=== PATIENT | female | born 1960 | race Caucasian/White ===

== ENCOUNTER 2016-05-14 09:29 | Emergency (ER) | payer OTHER ==
[2016-05-14 09:43] VITALS: BP 126/74; PULSE 70; TEMP 97.7; BMI 24.1
[2016-05-14 11:01] LABS: URINE APPEARANCE CLEAR; URINE BILIRUBIN NEGATIVE (NEGATIVE); URINE BLOOD NEGATIVE (NEGATIVE); URINE COLOR LTYELLOW; URINE GLUCOSE (UA) NEGATIVE (NEGATIVE); URINE KETONE NEGATIVE (NEGATIVE); URINE LEUK ESTERASE NEGATIVE (NEGATIVE); URINE NITRITE NEGATIVE (NEGATIVE); URINE PROTEIN NEGATIVE (NEGATIVE); URINE UROBILINOGEN NEGATIVE E.U./dl (0.2-1.0)
[2016-05-14] MEDS ORDERED: KETOROLAC TROMETHAMINE 60 MG/2 ML VIAL IM ONE (11:17)
--- NOTE | 2016-05-14 11:26 | PDOC ---
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 Pt states she lifted heavy vaccum and felt pain to low back. Pt has had same symptoms in the past. No urine or bowel dysfunction, no leg numbness or saddle anesthesia. Pt denies vomiting, pain is worse with sitting down, walking. no fever or chills. Occurred: reports: other (4 days) Severity: reports: moderate Pain Location: reports: back Method of Injury: No: assault, direct blow, fall, motor vehicle crash Past History - Past Medical History Allergies/Adverse Reactions: Allergies Allergy/AdvReac Type Severity Reaction Status Date / Time No Known Allergies Allergy Verified 05/14/16 09:44 Home Medications: Ambulatory Orders Cyclobenzaprine HCl [Flexeril -] 10 mg PO TID PRN #21 tablet 05/14/16 Naproxen [Naprosyn -] 500 mg PO BID PRN #21 tablet 05/14/16 Anemia: No Asthma: No Cancer: No Cardiac Disorders: No CVA: No COPD: No CHF: No Dementia: No Diabetes: No GI Disorders: Yes (HX GERD) Disorders: No HTN: No Hypercholesterolemia: Yes Liver Disease: No Seizures: No Thyroid Disease: No Other medical history: back pain - Surgical History Abdominal Surgery: No Appendectomy: No Cardiac Surgery: No Cholecystectomy: Yes Lung Surgery: No Neurologic Surgery: No Orthopedic Surgery: No - Psycho/Social/Smoking Cessation Hx Anxiety: No Suicidal Ideation: No Smoking Status: Yes Smoking History: Current every day smoker Have you smoked in the past 12 months: Yes Number of Cigarettes Smoked Daily: 2 Information on smoking cessation initiated: No 'Breaking Loose' booklet given: 07/06/14 Hx Alcohol Use: No Drug/Substance Use Hx: No Substance Use Type: None Hx Substance Use Treatment: No Trauma Specific PMHX - Complaint Specific PMHX Arthritis: No Back Injury: No Neck Injury: No Hx Sacro Iliac Joint Dysfunction: No Review of Systems - Review of Systems Able to Perform ROS?: Yes Is the patient limited Indonesian proficient: No Constitutional: No: Symptoms Reported HEENTM: No: Symptoms Reported Respiratory: No: Symptoms reported Cardiac (ROS): No: Symptoms Reported ABD/GI: No: Symptoms Reported : No: Symptoms Reported Musculoskeletal: Yes: See HPI, Back Pain. No: Neck Pain Integumentary: No: Symptoms Reported Neurological: No: Symptoms reported *Physical Exam - Vital Signs Last Vital Signs Temp Pulse Resp BP Pulse Ox 97.7 F 70 18 126/74 100 05/14/16 09:40 05/14/16 09:40 05/14/16 09:40 05/14/16 09:40 05/14/16 09:40 - Physical Exam General Appearance: Yes: Nourished, Appropriately Dressed HEENT: positive: EOMI, PONCHO, Normal ENT Inspection, TMs Normal, Pharynx Normal Neck: positive: Supple Respiratory/Chest: positive: Lungs Clear, Normal Breath Sounds Cardiovascular: positive: Regular Rhythm, Regular Rate Gastrointestinal/Abdominal: positive: Normal Bowel Sounds, Soft Rectal Exam: positive: normal exam, normal rectal tone. negative: decreased tone Lymphatic: negative: Adenopathy Musculoskeletal: positive: Normal Inspection, Decreased Range of Motion, Other ( right lower back paraspinal lumbar tenderness ). negative: CVA Tenderness, CVA Tenderness (R), CVA Tenderness (L), Muscle Spasm, Vertebral Tenderness Extremity: positive: Normal Capillary Refill, Normal Inspection, Normal Range of Motion, Pelvis Stable Integumentary: positive: Normal Color, Dry, Warm Neurologic: positive: Fully Oriented, Alert, Normal Mood/Affect, Normal Response , Motor Strength 5/5, Other (negative sLR bilateraly). negative: Sensory Deficit, Finger to Nose ED Treatment Course - ADDITIONAL ORDERS Additional order review: Laboratory Results 05/14/16 10:44 Urine Color Ltyellow Urine Appearance Clear Urine pH 6.0 Ur Specific Vincent 1.011 Urine Protein Negative Urine Glucose (UA) Negative Urine Ketones Negative Urine Blood Negative Urine Nitrite Negative Urine Bilirubin Negative Urine Urobilinogen Negative Ur Leukocyte Esterase Negative Urine HCG, Qual Negative Medical Decision Making - Medical Decision Making 05/14/16 11:32 cc: low back pain for 4 days worse with movement, sitting to standing position , walking for long period sof time no abd pain neg fever, chills, neg urine/bowel dysfunction or anesthesia will check UA give toradol for pain follow up with the orthopedist for follow up naprosyn and flexeril for muscle spasm *DC/Admit/Observation/Transfer Diagnosis at time of Disposition: Back pain Qualifiers: Back pain location: low back pain Chronicity: acute Back pain laterality: bilateral Sciatica presence: with sciatica Sciatica laterality: sciatica of right side Qualified Code(s): M54.41 - Lumbago with sciatica, right side - Discharge Dispostion Disposition: HOME Condition at time of disposition: Good - Prescriptions Prescriptions: Cyclobenzaprine HCl [Flexeril -] 10 mg PO TID PRN #21 tablet PRN Reason: Muscle Spasms Naproxen [Naprosyn -] 500 mg PO BID PRN #21 tablet PRN Reason: Pain - Patient Instructions Additional Instructions: apply ice to lower back every 2hrs for 20 minutes apply warm compresses to lower back every 3hrs for 20 minutes take flexeril for muscle spasm take naprosyn for pain as needed follow with the orthopedist this week for follow up
[2016-05-14] MEDS ORDERED: KETOROLAC TROMETHAMINE 60 MG/2 ML VIAL ONE (11:28)
== END 2016-05-14 11:43 | disposition home or self-care (01) ==
LOC: JERFT 09:29
PROC: 3E0233Z Introduction of Anti-inflammatory into Muscle, Percutaneous Approach (ICD-10-PCS; principal; 2016-05-14)
DX: M54.41 Lumbago with sciatica, right side (principal); X50.0XXA Overexertion from strenuous movement or load, initial encounter; Y93.E3 Activity, vacuuming; Y92.098 Other place in other non-institutional residence as the place of occurrence of the external cause; Y99.0 Civilian activity done for income or pay
CPT/HCPCS: 81003; 84703; 96372; 99281-25

== ENCOUNTER 2016-10-16 16:18 | Emergency (ER) | payer OTHER ==
[2016-10-16] MEDS ORDERED: diazePAM 5 MG TABLET PO ONE (16:24)
--- NOTE | 2016-10-16 16:24 | PDOC ---
Rapid Medical Evaluation Time Seen by Provider: 10/16/16 16:20 Medical Evaluation: Allergies Allergy/AdvReac Type Severity Reaction Status Date / Time No Known Allergies Allergy Verified 05/14/16 09:44 I have performed a brief in-person evaluation of this patient. The patient presents with a chief complaint of: left sided face pain and swelling since last night. Pt states she cannot chew without pain Pertinent physical exam findings: swelling to left side of face with exquisite TTP of left TMJ. I have ordered the following: IM Toradol The patient will proceed to the ED for further evaluation.
[2016-10-16 16:28] VITALS: BP 156/77; PULSE 72; TEMP 97.5; BMI 24.4
[2016-10-16] MEDS ORDERED: diazePAM 5 MG TABLET ONE (17:01)
--- NOTE | 2016-10-16 17:01 | PDOC ---
History of Present Illness - General Chief Complaint: Pain Stated Complaint: FACIAL PAIN Time Seen by Provider: 10/16/16 16:20 - History of Present Illness Initial Comments: 10/16/16 16:54 CHIEF COMPLAINT: left jaw pain HISTORY OF PRESENT ILLNESS: 56 yo F with no PMH presents to fast track with sudden onset left sided jaw pain since yesterday. Patient states the pain started when she was lying down to go to sleep, so she took 800 mg of ibuprofen which helped her sleep a little bit. Today she woke up with persistent pain and has not been able to open her mouth and therefore has barely been able to eat anything. PAST MEDICAL HISTORY: Denies past medical history FAMILY HISTORY: Denies SOCIAL HISTORY:Denies tobacco, alcohol, illicit drug use. SURGICAL HISTORY: Denies ALLERGIES: No known drug allergies REVIEW OF SYSTEMS General/Constitutional: Denies fever or chills. Denies weakness, weight change. HEENT: Left sided facial pain. Denies change in vision. Denies ear pain or discharge. Denies sore throat. Cardiovascular: Denies chest pain or shortness of breath. Respiratory: Denies cough, wheezing, or hemoptysis. Gastrointestinal: Denies nausea, vomiting, diarrhea or constipation. Denies rectal bleeding. Genitourinary: Denies dysuria, frequency, or change in urination. Musculoskeletal: Denies joint or muscle swelling or pain. Denies neck or back pain. Skin and breasts: Denies rash or easy bruising. Neurologic: Denies headache, vertigo, loss of consciousness, or loss of sensation. PHYSICAL EXAM General Appearance: Well-appearing, appropriately dressed. No apparent distress , no intoxication. HEENT: TTP to left TMJ, +trismus. EOMI, PERRLA, normal ENT inspection, normal voice, TMs normal, pharynx normal. No conjunctival pallor. No photophobia, scleral icterus. Neck: Supple. Trachea midline. No tenderness, rigidity, carotid bruit, stridor , lymphadenopathy, or thyromegaly. Respiratory/Chest: Lungs CTAB. No shortness of breath, chest tenderness, respiratory distress, accessory muscle use. No crackles, rales, rhonchi, stridor , wheezing, dullness Cardiovascular: RRR. S1, S2. No JVD, murmur, bradycardia, tachycardia. Vascular Pulses: Dorsalis-Pedis (R): 2+, Dorsalis-Pedis (L): 2+ Gastrointestinal/Abdominal: Normal bowel sounds. Abdomen soft, non-distended. No tenderness or rebound tenderness. No organomegaly, pulsatile mass, guarding , hernia, hepatomegaly, splenomegaly. Lymphatic: No adenopathy, tenderness. Musculoskeletal/Extremities: Normal inspection. FROM of all extremities, normal capillary refill. Pelvis Stable. No CVA tenderness. No tenderness to extremities, pedal edema, swelling, erythema or deformity. Integumentary: Appropriate color, dry, warm. 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 Fully oriented, alert. Appropriate mood/affect. Motor strength 5/5. No appreciable EOM palsy, facial droop or sensory deficit. Past History - Past Medical History Allergies/Adverse Reactions: Allergies Allergy/AdvReac Type Severity Reaction Status Date / Time No Known Allergies Allergy Verified 10/16/16 16:28 Home Medications: Ambulatory Orders Cyclobenzaprine HCl [Flexeril -] 10 mg PO TID PRN #21 tablet 05/14/16 Naproxen [Naprosyn -] 500 mg PO BID PRN #21 tablet 05/14/16 Diclofenac Sodium 75 mg PO BID #14 tablet. 10/16/16 Anemia: No Asthma: No Cancer: No Cardiac Disorders: No CVA: No COPD: No CHF: No Dementia: No Diabetes: No GI Disorders: Yes (HX GERD) Disorders: No HTN: No Hypercholesterolemia: Yes Liver Disease: No Seizures: No Thyroid Disease: No - Surgical History Abdominal Surgery: No Appendectomy: No Cardiac Surgery: No Cholecystectomy: Yes Lung Surgery: No Neurologic Surgery: No Orthopedic Surgery: No - Psycho/Social/Smoking Cessation Hx Anxiety: No Suicidal Ideation: No Smoking Status: Yes Smoking History: Current every day smoker Have you smoked in the past 12 months: Yes Number of Cigarettes Smoked Daily: 2 Information on smoking cessation initiated: No 'Breaking Loose' booklet given: 07/06/14 Hx Alcohol Use: No Drug/Substance Use Hx: No Substance Use Type: None Hx Substance Use Treatment: No *Physical Exam - Vital Signs Last Vital Signs Temp Pulse Resp BP Pulse Ox 97.5 F L 72 18 156/77 100 10/16/16 16:19 10/16/16 16:19 10/16/16 16:19 10/16/16 16:19 10/16/16 16:19 Medical Decision Making - Medical Decision Making 10/16/16 16:58 56 yo F with no PMH presents to fast track with sudden onset left sided jaw pain since yesterday. -Toradol, Valium ordered in FT 75 mg Diclofenac bid, rx sent to pharm. Advised patient to f/u with [facility] for further evaluation if symptoms persist despite pain medication. Advised patient of signs and symptoms of return to ER ; patient verbalized understanding and agrees plan. *DC/Admit/Observation/Transfer Diagnosis at time of Disposition: TMJ (temporomandibular joint disorder) - Discharge Dispostion Disposition: HOME Condition at time of disposition: Stable Admit: No - Prescriptions Prescriptions: Diclofenac Sodium 75 mg PO BID #14 tablet.dr - Referrals Referrals: Zhanna Fitch [Primary Care Provider] - Oral Fly Burnett [Other] - Patient Instructions Printed Discharge Instructions: DI for Temporomandibular Disorder Additional Instructions: Please take medication as prescribed and follow up with oral/maxillofacial surgeon this week. A referral has been provided. If you experience any fever, chills, nausea, vomiting, diarrhea, or any new or worsening symptoms, please return to the ER. Print Language: MONGOLIAN
== END 2016-10-16 17:34 | disposition home or self-care (01) ==
LOC: JERFT 16:18
DX: M26.69 Other specified disorders of temporomandibular joint (principal); R25.2 Cramp and spasm; E78.00 Pure hypercholesterolemia, unspecified; F17.210 Nicotine dependence, cigarettes, uncomplicated
CPT/HCPCS: 99281-25

== ENCOUNTER 2017-08-22 08:22 | Emergency (ER) | payer OTHER ==
[2017-08-22 08:29] VITALS: BP 163/71; PULSE 62; TEMP 97.9; BMI 26.6
[2017-08-22] MEDS ORDERED: KETOROLAC TROMETHAMINE 60 MG/2 ML VIAL IM ONE (08:50)
[2017-08-22] MEDS ORDERED: CYCLOBENZAPRINE HCL 10 MG TABLET (FP) PO ONE (08:50)
[2017-08-22] MEDS ORDERED: KETOROLAC TROMETHAMINE 60 MG/2 ML VIAL ONE (08:53)
[2017-08-22] MEDS ORDERED: CYCLOBENZAPRINE HCL 10 MG TABLET (FP) ONE (08:53)
--- NOTE | 2017-08-22 09:13 | PDOC ---
History of Present Illness - General Chief Complaint: Back Pain Stated Complaint: BACK PAIN Time Seen by Provider: 08/22/17 08:40 History Source: Patient Exam Limitations: No Limitations - History of Present Illness Initial Comments: 08/22/17 09:13 57-year-old female presents to the ED with complaints of lower back pain since last night, relieved with Motrin. 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 Patient is often pushing pulling and lifting. Patient normally receives an injection which he comes to the ER which leaves her discomfort. 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 Patient has no complaints of saddle anesthesia, incontinence, abdominal pain, weakness, or paresthesia. Occurred: reports: yesterday Severity: reports: moderate Pain Location: reports: back Method of Injury: Yes: other Associated Symptoms (Fall): denies symptoms Past History - Travel Traveled outside of the country in the last 30 days: No - Past Medical History Allergies/Adverse Reactions: Allergies Allergy/AdvReac Type Severity Reaction Status Date / Time No Known Allergies Allergy Verified 08/22/17 08:25 Home Medications: Ambulatory Orders Cyclobenzaprine HCl [Flexeril -] 5 mg PO TID PRN #12 tablet 08/22/17 Ibuprofen [Motrin -] 600 mg PO TID PRN #21 tablet 08/22/17 Anemia: No Asthma: No Cancer: No Cardiac Disorders: No CVA: No COPD: No CHF: No Dementia: No Diabetes: No GI Disorders: Yes (HX GERD) Disorders: No HTN: No Hypercholesterolemia: Yes Liver Disease: No Seizures: No Thyroid Disease: No - Surgical History Abdominal Surgery: No Appendectomy: No Cardiac Surgery: No Cholecystectomy: Yes Lung Surgery: No Neurologic Surgery: No Orthopedic Surgery: No - Suicide/Smoking/Psychosocial Hx Smoking Status: Yes Smoking History: Never smoked Have you smoked in the past 12 months: Yes Number of Cigarettes Smoked Daily: 2 Information on smoking cessation initiated: No 'Breaking Loose' booklet given: 07/06/14 Hx Alcohol Use: No Drug/Substance Use Hx: No Substance Use Type: None Hx Substance Use Treatment: No Patient Lives Alone: No Trauma Specific PMHX - Complaint Specific PMHX Arthritis: No Back Injury: No Neck Injury: No Hx Sacro Iliac Joint Dysfunction: No Review of Systems - Review of Systems Able to Perform ROS?: Yes Constitutional: No: Symptoms Reported ABD/GI: No: Symptoms Reported Musculoskeletal: Yes: Back Pain, Muscle Pain Integumentary: No: Symptoms Reported Neurological: No: Symptoms reported *Physical Exam - Vital Signs Last Vital Signs Temp Pulse Resp BP Pulse Ox 97.9 F 62 16 163/71 100 08/22/17 08:26 08/22/17 08:26 08/22/17 08:26 08/22/17 08:26 08/22/17 08:26 - Physical Exam General Appearance: Yes: Nourished, Appropriately Dressed. No: Apparent Distress Neck: positive: Supple. negative: Tender, Decreased range of motion Gastrointestinal/Abdominal: positive: Soft. negative: Tenderness Musculoskeletal: positive: Muscle Spasm (bilateral paraspinous at L3-L5 level). negative: Vertebral Tenderness (no midline tenderness) Extremity: positive: Normal Inspection, Normal Range of Motion Integumentary: positive: Normal Color, Warm, Moist Neurologic: positive: Motor Strength 5/5 (ambulatory) ED Treatment Course - Medications Given in the ED: ED Medications Discontinued Medications Generic Name Dose Route Start Last Admin Trade Name Freq PRN Reason Stop Dose Admin Cyclobenzaprine HCl 5 mg 08/22/17 08:50 08/22/17 08:57 Flexeril - PO 08/22/17 08:51 5 mg ONCE ONE Administration Ketorolac Tromethamine 60 mg 08/22/17 08:50 08/22/17 08:57 Toradol Injection - IM 08/22/17 08:51 60 mg ONCE ONE Administration Medical Decision Making - Medical Decision Making 08/22/17 09:15 Patient with acute on chronic low back pain requesting an injection which she normally gets when she comes to the ER. Patient exam had no acute findings suggestive of imaging or further management. Patient ordered for Toradol and Flexeril. Patient to be discharged home with Ultram and Flexeril. Patient requesting a work no. *DC/Admit/Observation/Transfer Diagnosis at time of Disposition: Low back pain - Discharge Dispostion Disposition: HOME Condition at time of disposition: Good - Prescriptions Prescriptions: Cyclobenzaprine HCl [Flexeril -] 5 mg PO TID PRN #12 tablet PRN Reason: Back Pain Ibuprofen [Motrin -] 600 mg PO TID PRN #21 tablet PRN Reason: Pain - Referrals Referrals: Zhanna Fitch [Primary Care Provider] - - Patient Instructions Printed Discharge Instructions: DI for Low Back Pain Additional Instructions: At this time I recommend applying ice to the affected areas for the next 3 days then heat thereafter. please do not perform duties that triggered discomfort. Take medication as needed. - Post Discharge Activity Forms/Work/School Notes: Back to Work
== END 2017-08-22 09:23 | disposition home or self-care (01) ==
LOC: JERFT 08:22
DX: M54.5 Low back pain (principal); X50.0XXA Overexertion from strenuous movement or load, initial encounter; Y93.E9 Activity, other interior property and clothing maintenance; Y92.128 Other place in nursing home as the place of occurrence of the external cause; Y99.0 Civilian activity done for income or pay
CPT/HCPCS: 99281-25

== ENCOUNTER 2018-04-22 13:10 | Emergency (ER) | payer OTHER ==
[2018-04-22 13:28] VITALS: BP 134/64; PULSE 89; TEMP 98.6; BMI 26.9
--- NOTE | 2018-04-22 13:29 | PDOC ---
Rapid Medical Evaluation Chief Complaint: Injury Time Seen by Provider: 04/22/18 13:26 Medical Evaluation: Allergies Allergy/AdvReac Type Severity Reaction Status Date / Time No Known Allergies Allergy Verified 08/22/17 08:25 04/22/18 13:26 I have performed a brief in-person evaluation of this patient. The patient presents with a chief complaint of: b/l anterior knee pain s/l slip and fall on b/l knees yesterday at home. pt report slipping off the couch. pt did not hit head or LOC Pertinent physical exam findings: tenderness to anterior b/l patella. ambulate w /o difficulty I have ordered the following: b/l knee x-rays The patient will proceed to the ED for further evaluation Discharge Disposition - Diagnosis Knee pain, bilateral Qualifiers: Chronicity: acute Qualified Code(s): M25.561 - Pain in right knee; M25.562 - Pain in left knee - Discharge Dispostion Condition at time of disposition: Stable - Referrals Referrals: Zhanna Fitch [Primary Care Provider] - - Patient Instructions - Post Discharge Activity
--- NOTE | 2018-04-22 14:33 | PDOC ---
History of Present Illness - General Chief Complaint: Injury Stated Complaint: Injury Time Seen by Provider: 04/22/18 13:26 - History of Present Illness Initial Comments: 04/22/18 14:30 57-year-old female denies comorbidities presents for evaluation after a trip and fall mechanically yesterday on to both knees. No head injury she did not hit her head loss consciousness no nausea vomiting or postinjury visual changes she points to the anterior aspect of both knees as the area for discomfort. Past History - Past Medical History Allergies/Adverse Reactions: Allergies Allergy/AdvReac Type Severity Reaction Status Date / Time No Known Allergies Allergy Verified 08/22/17 08:25 Home Medications: Ambulatory Orders NK [No Known Home Medication] 04/22/18 Anemia: No Asthma: No Cancer: No Cardiac Disorders: No CVA: No COPD: No CHF: No Dementia: No Diabetes: No GI Disorders: Yes (HX GERD) Disorders: No HTN: No Hypercholesterolemia: Yes Liver Disease: No Seizures: No Thyroid Disease: No - Surgical History Abdominal Surgery: No Appendectomy: No Cardiac Surgery: No Cholecystectomy: Yes Lung Surgery: No Neurologic Surgery: No Orthopedic Surgery: No - Immunization History Immunization Up to Date: No - Suicide/Smoking/Psychosocial Hx Smoking Status: Yes Smoking History: Current some day smoker Have you smoked in the past 12 months: No Number of Cigarettes Smoked Daily: 2 Information on smoking cessation initiated: No 'Breaking Loose' booklet given: 07/06/14 Hx Alcohol Use: No Drug/Substance Use Hx: No Substance Use Type: None Hx Substance Use Treatment: No Review of Systems - Review of Systems Musculoskeletal: Yes: Joint Pain *Physical Exam - Vital Signs Last Vital Signs Temp Pulse Resp BP Pulse Ox 98.6 F 89 16 134/64 100 04/22/18 13:25 04/22/18 13:25 04/22/18 13:25 04/22/18 13:25 04/22/18 13:25 - Physical Exam Comments: 04/22/18 14:31 Bilateral knee skin color and temperature are normal there is a small superficial abrasion on the anterior aspect of the left knee. Range of motion 0- 110 beyond that causes some discomfort. No swelling or intra-articular fusion bilaterally no evidence of instability or gross sensorimotor deficits she's neurovascularly intact bilaterally thighs and calves are soft and nontender. Mild medial lateral joint line tenderness bilaterally Moderate Sedation - Procedure Monitoring Vital Signs: Procedure Monitoring Vital Signs Temperature 98.6 F 04/22/18 13:25 Pulse Rate 89 04/22/18 13:25 Respiratory Rate 16 04/22/18 13:25 Blood Pressure 134/64 04/22/18 13:25 O2 Sat by Pulse Oximetry (%) 100 04/22/18 13:25 *DC/Admit/Observation/Transfer Diagnosis at time of Disposition: Contusion of knee, left, Contusion of knee, right Knee pain, bilateral Qualifiers: Chronicity: acute Qualified Code(s): M25.561 - Pain in right knee - Discharge Dispostion Disposition: HOME Condition at time of disposition: Stable Decision to Admit order: No - Referrals Referrals: Zhanna Fitch [Primary Care Provider] - Shon Cummings MD [Staff Physician] - - Patient Instructions Printed Discharge Instructions: DI for Contusion, Contusion Additional Instructions: May take Tylenol and Motrin as directed for pain. Return to the emergency room should symptoms worsen or go unresolved and follow-up with orthopedic surgery in 2-3 days further evaluation and treatment options. Print Language: WELSH - Post Discharge Activity
== END 2018-04-22 14:38 | disposition home or self-care (01) ==
LOC: JERFT 13:10
DX: M25.561 Pain in right knee (principal); S80.02XA Contusion of left knee, initial encounter; S80.01XA Contusion of right knee, initial encounter; W18.39XA Other fall on same level, initial encounter; Y93.89 Activity, other specified; Y92.89 Other specified places as the place of occurrence of the external cause; F17.210 Nicotine dependence, cigarettes, uncomplicated; E78.00 Pure hypercholesterolemia, unspecified
CPT/HCPCS: 73562-TC-LT-FY; 73562-TC-RT-FY; 99281-25

== ENCOUNTER 2018-06-17 13:12 | Emergency (ER) | payer SELFPAY ==
[2018-06-17 13:23] VITALS: BP 136/85; PULSE 68; TEMP 98; BMI 25.0
[2018-06-17] MEDS ORDERED: KETOROLAC TROMETHAMINE 60 MG/2 ML VIAL IM ONE (14:04)
[2018-06-17] MEDS ORDERED: KETOROLAC TROMETHAMINE 60 MG/2 ML VIAL ONE (14:06)
--- NOTE | 2018-06-17 14:10 | PDOC ---
History of Present Illness - General Chief Complaint: Chronic pain Stated Complaint: LOWER BACK PAIN Time Seen by Provider: 06/17/18 13:49 History Source: Patient Exam Limitations: Clinical Condition - History of Present Illness Initial Comments: 06/17/18 14:05 Patient would show chronic back pain isn't with complaint of persistent lower back pain and bilateral side for 4 days now after heavy lifting at work. Patient reported increased pain when she get up from laying down or sitting position. Patient reports taking Tylenol for pain but has not been improving. Patient denies any numbness or tingling sensation. Patient denies radiation of pain to lower legs. Patient denies any other symptoms Timing/Duration: other (4 days) Past History - Past Medical History Allergies/Adverse Reactions: Allergies Allergy/AdvReac Type Severity Reaction Status Date / Time No Known Allergies Allergy Verified 06/17/18 13:21 Home Medications: Ambulatory Orders Methocarbamol [Robaxin -] 500 mg PO TID PRN #21 tablet 06/17/18 Naproxen 500 mg PO BID PRN #20 tablet 06/17/18 Anemia: No Asthma: No Cancer: No Cardiac Disorders: No CVA: No COPD: No CHF: No Dementia: No Diabetes: No GI Disorders: Yes (HX GERD) Disorders: No HTN: No Hypercholesterolemia: Yes Liver Disease: No Seizures: No Thyroid Disease: No - Surgical History Abdominal Surgery: No Appendectomy: No Cardiac Surgery: No Cholecystectomy: Yes Lung Surgery: No Neurologic Surgery: No Orthopedic Surgery: No - Immunization History Immunization Up to Date: No - Suicide/Smoking/Psychosocial Hx Smoking Status: Yes Smoking History: Unknown if ever smoked Have you smoked in the past 12 months: No Number of Cigarettes Smoked Daily: 2 'Breaking Loose' booklet given: 07/06/14 Hx Alcohol Use: No Drug/Substance Use Hx: No Substance Use Type: None Hx Substance Use Treatment: No Review of Systems - Review of Systems Able to Perform ROS?: Yes Is the patient limited Lao proficient: No Constitutional: No: Weakness HEENTM: No: Symptoms Reported Respiratory: No: Symptoms reported Cardiac (ROS): No: Symptoms Reported ABD/GI: No: Nausea, Vomiting : No: Burning, Dysuria, Frequency, Urgency Musculoskeletal: Yes: See HPI, Back Pain (b/l lower back) Neurological: No: Numbness, Paresthesia, Tingling, Dizziness All Other Systems: Reviewed and Negative *Physical Exam - Vital Signs Last Vital Signs Temp Pulse Resp BP Pulse Ox 98 F 68 18 136/85 99 06/17/18 13:21 06/17/18 13:21 06/17/18 13:21 06/17/18 13:21 06/17/18 13:21 - Physical Exam Comments: 06/17/18 14:08 GENERAL: Well developed, well nourished. Awake and alert. No acute distress. CARDIOVASCULAR: Regular rate and rhythm. No murmurs, rubs, or gallops. PULMONARY: No evidence of respiratory distress. Lungs clear to auscultation bilaterally. No wheezing, rales or rhonchi. ABDOMINAL: Soft. Non-tender. Non-distended. No rebound or guarding. No organomegaly. Normoactive bowel sounds MUSCULOSKELETAL : mild tenderness over posterior paravertebral muscle of lumbosacral spine of L3-S2 on bilateral sides. No bony deformities SKIN: Warm and dry. Normal capillary refill. No rashes. No jaundice. NEUROLOGICAL: Alert, awake, appropriate. No motor deficits in the lower extremities. Gait is normal without ataxia. PSYCHIATRIC: Cooperative. Good eye contact. Appropriate mood and affect. General Appearance: Yes: Nourished, Appropriately Dressed, Mild Distress Moderate Sedation - Procedure Monitoring Vital Signs: Procedure Monitoring Vital Signs Temperature 98 F 06/17/18 13:21 Pulse Rate 68 06/17/18 13:21 Respiratory Rate 18 06/17/18 13:21 Blood Pressure 136/85 06/17/18 13:21 O2 Sat by Pulse Oximetry (%) 99 06/17/18 13:21 Medical Decision Making - Medical Decision Making 06/17/18 14:10 Patient would show chronic back pain isn't with complaint of persistent lower back pain and bilateral side for 4 days now after heavy lifting at work. Patient reported increased pain when she get up from laying down or sitting position. Patient reports taking Tylenol for pain but has not been improving. Patient denies any numbness or tingling sensation. Patient denies radiation of pain to lower legs. Exam significant for tenderness to bilateral paravertebral muscle of the lower lumbosacral spine which is worse with external rotation of hip. Symptoms likely back spasm from muscle strain. Toradol 60 mg IM ordered for pain. Patient is stable for discharge on naproxen and Robaxin by mouth with orthopedist follow-up as needed. *DC/Admit/Observation/Transfer Diagnosis at time of Disposition: Back pain Qualifiers: Back pain location: low back pain Chronicity: chronic Back pain laterality: bilateral Sciatica presence: without sciatica Qualified Code(s): M54.5 - Low back pain; G89.29 - Other chronic pain - Discharge Dispostion Disposition: HOME Condition at time of disposition: Stable Decision to Admit order: No - Prescriptions Prescriptions: Methocarbamol [Robaxin -] 500 mg PO TID PRN #21 tablet PRN Reason: Back Pain Naproxen 500 mg PO BID PRN #20 tablet PRN Reason: Back Pain - Referrals Referrals: Shon Cummings MD [Staff Physician] - - Patient Instructions Printed Discharge Instructions: Managing Chronic Low Back Pain, Low Back Pain Additional Instructions: [place] los medicamentos recetados segn sea necesario para el dolor. Aplique calor a la parte baja de la espalda nesha 5-10 minutos segn sea necesario para el dolor. El seguimiento se refiere a la ortopedia si los sntomas persisten nesha ms de 4 kumar. Print Language: SWEDISH - Post Discharge Activity
== END 2018-06-17 14:15 | disposition home or self-care (01) ==
LOC: JERFT 13:12
PROC: 3E0233Z Introduction of Anti-inflammatory into Muscle, Percutaneous Approach (ICD-10-PCS; principal; 2018-06-17)
DX: M54.5 Low back pain (principal); G89.29 Other chronic pain; X50.0XXA Overexertion from strenuous movement or load, initial encounter; Y92.69 Other specified industrial and construction area as the place of occurrence of the external cause; Y99.0 Civilian activity done for income or pay
CPT/HCPCS: 99281-25

== ENCOUNTER 2018-08-18 12:08 | Emergency (ER) | payer OTHER ==
[2018-08-18 12:16] VITALS: BP 133/70; PULSE 77; TEMP 97.6; BMI 25.8
[2018-08-18] MEDS ORDERED: ACETAMINOPHEN 500 MG TABLET (FP) PO ONE (15:13)
--- NOTE | 2018-08-18 15:17 | PDOC ---
History of Present Illness - General Chief Complaint: Injury Stated Complaint: FALL Time Seen by Provider: 08/18/18 12:28 History Source: Patient Exam Limitations: No Limitations - History of Present Illness Initial Comments: 08/18/18 15:16 Patient with medical history of htn, no significant surgical history presents with headache and lightheadedness. Patient reports s/p slipped and fall on water at home, hitting the back of her head, since then with headache, tenderness to left back of head and feeling lightheaded. Denies loc , nausea or vomiting. Occurred: reports: other (saturday, 3 days prior) Severity: reports: moderate Pain Location: reports: head Method of Injury: Yes: fall Modifying Factors: improves with: immobilization Loss of Consciousness: no loss of consciousness Associated Symptoms (Fall): headache, lightheadedness Past History - Travel Traveled outside of the country in the last 30 days: No Close contact w/someone who was outside of country & ill: No - Past Medical History Allergies/Adverse Reactions: Allergies Allergy/AdvReac Type Severity Reaction Status Date / Time No Known Allergies Allergy Verified 08/18/18 12:16 Home Medications: Ambulatory Orders Acetaminophen 500 mg PO Q4HWA #20 tablet 08/18/18 Anemia: No Asthma: No Cancer: No Cardiac Disorders: No CVA: No COPD: No CHF: No Dementia: No Diabetes: No GI Disorders: Yes (HX GERD) Disorders: No HTN: No Hypercholesterolemia: Yes Liver Disease: No Seizures: No Thyroid Disease: No - Surgical History Abdominal Surgery: No Appendectomy: No Cardiac Surgery: No Cholecystectomy: Yes Lung Surgery: No Neurologic Surgery: No Orthopedic Surgery: No - Immunization History Immunization Up to Date: No - Suicide/Smoking/Psychosocial Hx Smoking Status: Yes Smoking History: Current every day smoker Have you smoked in the past 12 months: No Number of Cigarettes Smoked Daily: 2 Information on smoking cessation initiated: No 'Breaking Loose' booklet given: 07/06/14 Hx Alcohol Use: No Drug/Substance Use Hx: No Substance Use Type: None Hx Substance Use Treatment: No Trauma Specific PMHX - Complaint Specific PMHX Arthritis: No Back Injury: No Neck Injury: No Hx Sacro Iliac Joint Dysfunction: No Review of Systems - Review of Systems Able to Perform ROS?: Yes Is the patient limited Bengali proficient: No Constitutional: No: Chills, Fever, Malaise HEENTM: No: Double Vision, Nose Congestion, Throat Pain Respiratory: No: Shortness of Breath, Wheezing Cardiac (ROS): Yes: Lightheadedness. No: Chest Pain ABD/GI: No: Constipated, Nausea, Poor Appetite, Poor Fluid Intake, Vomiting, Indigestion : No: Burning, Hematuria, Incontinence Musculoskeletal: No: Joint Pain, Muscle Weakness Integumentary: No: Bruising, Dryness, Erythema Neurological: Yes: Headache. No: Numbness, Paresthesia, Seizure Psychiatric: No: Stressors, Sleep Pattern Change *Physical Exam - Vital Signs Last Vital Signs Temp Pulse Resp BP Pulse Ox 97.6 F 77 16 133/70 100 08/18/18 12:13 08/18/18 12:13 08/18/18 12:13 08/18/18 12:13 08/18/18 12:13 - Physical Exam General Appearance: Yes: Nourished, Appropriately Dressed HEENT: positive: TMs Normal, Pharynx Normal. negative: Tonsillar Exudate, Nasal Congestion, Rhinorrhea Neck: positive: Supple. negative: Decreased range of motion, Lymphadenopathy (R ), Lymphadenopathy (L), Tender midline Respiratory/Chest: positive: Lungs Clear, Normal Breath Sounds. 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 Plan:analgesia head ct *DC/Admit/Observation/Transfer Diagnosis at time of Disposition: Fall Qualifiers: Encounter type: initial encounter Qualified Code(s): W19.XXXA - Unspecified fall, initial encounter Minor head injury without loss of consciousness Qualifiers: Encounter type: initial encounter Qualified Code(s): S09.90XA - Unspecified injury of head, initial encounter - Discharge Dispostion Disposition: HOME Condition at time of disposition: Good Decision to Admit order: No - Prescriptions Prescriptions: Acetaminophen 500 mg PO Q4HWA #20 tablet - Referrals Referrals: Sami Valerio [Primary Care Provider] - Call tomorrow (call for follow up appointment ) - Patient Instructions Printed Discharge Instructions: How to Prevent Falls Additional Instructions: Please call primary physician for follow up appointment Take acetaminophen as prescribed Print Language: ROMANIAN - Post Discharge Activity Forms/Work/School Notes: Back to Work
[2018-08-18] MEDS ORDERED: ACETAMINOPHEN 500 MG TABLET (FP) ONE (15:23)
== END 2018-08-18 17:05 | disposition home or self-care (01) ==
LOC: JERFT 12:08
DX: S09.8XXA Other specified injuries of head, initial encounter (principal); W01.0XXA Fall on same level from slipping, tripping and stumbling without subsequent striking against object, initial encounter; Y93.89 Activity, other specified; Y92.038 Other place in apartment as the place of occurrence of the external cause; Y99.8 Other external cause status; I10 Essential (primary) hypertension
CPT/HCPCS: 70450-TC; 72125-TC; 99281-25

== ENCOUNTER 2020-04-25 09:18 | Emergency (ER) | payer OTHER ==
[2020-04-25 09:26] VITALS: BP 132/84; PULSE 76; TEMP 97.6; BMI 26.6
[2020-04-25] MEDS ORDERED: KETOROLAC TROMETHAMINE 60 MG/2 ML VIAL IM ONE (09:46)
[2020-04-25] MEDS ORDERED: KETOROLAC TROMETHAMINE 60 MG/2 ML VIAL ONE (10:10)
== END 2020-04-25 11:14 | disposition home or self-care (01) ==
LOC: JER 09:18 → JERFT 09:18
PROC: 3E0233Z Introduction of Anti-inflammatory into Muscle, Percutaneous Approach (ICD-10-PCS; principal; 2020-04-25)
DX: S20.211A Contusion of right front wall of thorax, initial encounter (principal)
CPT/HCPCS: 71046-TC-FY; 71111-TC-FY; 99284-25

== ENCOUNTER 2021-01-18 07:31 | Emergency (ER) | payer OTHER ==
[2021-01-18 07:43] VITALS: BMI 27.4
[2021-01-18 08:51] LABS: BASO % 0.7 % (0-2.0); EOS % 1.1 % (0-4.5); HEMATOCRIT 37.4 % (32.4-45.2); HEMOGLOBIN 12.8 GM/dL (10.7-15.3); LYMPH % 25.4 % (8-40); MCH 31.3 pg (25.7-33.7); MCHC 34.2 g/dl (32.0-36.0); MEAN CELL VOLUME 91.7 fl (80-96); MEAN PLT VOLUME 8.6 fl (7.5-11.1); MONO % 8.2 % (3.8-10.2); NEUT % 64.6 % (42.8-82.8); PLATELET COUNT 252 10^3/uL (134-434); RBC 4.08 M/mm3 (3.60-5.2); RDW 13.8 % (11.6-15.6); WHITE BLOOD COUNT 11.7 K/mm3 (4.0-10.0)
[2021-01-18 08:52] LABS: URINE APPEARANCE CLEAR; URINE BILIRUBIN NEGATIVE (NEGATIVE); URINE COLOR YELLOW; URINE GLUCOSE (UA) NEGATIVE (NEGATIVE); URINE KETONE NEGATIVE (NEGATIVE); URINE LEUK ESTERASE NEGATIVE (NEGATIVE); URINE NITRITE NEGATIVE (NEGATIVE); URINE PROTEIN NEGATIVE (NEGATIVE); URINE UROBILINOGEN 0.2 mg/dL (0.2-1.0)
[2021-01-18 09:10] LABS: CALCIUM 8.9 mg/dL (8.5-10.1)
[2021-01-18 09:11] LABS: ALBUMIN 3.4 g/dl (3.4-5.0); BLOOD UREA NITROGEN 10.2 mg/dL (7-18)
[2021-01-18 09:14] LABS: CREATININE 0.5 mg/dL (0.55-1.3)
[2021-01-18 09:15] LABS: BILIRUBIN,TOTAL 0.4 mg/dL (0.2-1); TOT PROT 7.2 g/dl (6.4-8.2)
[2021-01-18 09:19] LABS: EPI CELLS 1 /uL (0-25.1); HYALINE CASTS 0 /uL (0-3.1); URINE BACTERIA 6 /uL (0-1359); URINE RBC 1 /uL (0-23.9); URINE WBC 1 /uL (0-25.8)
[2021-01-18 13:10] VITALS: TEMP 97.5
[2021-01-18] MEDS ORDERED: KETOROLAC TROMETHAMINE 30 MG/1 ML VIAL IVPUSH ONE (16:19)
[2021-01-18] MEDS ORDERED: METHOCARBAMOL 500 MG TABLET PO ONE (16:19)
[2021-01-18] MEDS ORDERED: LIDOCAINE 5% TOPICAL PATCH TP ONE (16:19)
[2021-01-18] MEDS ORDERED: LIDOCAINE 5% TOPICAL PATCH ONE (16:35)
[2021-01-18] MEDS ORDERED: METHOCARBAMOL 500 MG TABLET ONE (16:35)
[2021-01-18] MEDS ORDERED: KETOROLAC TROMETHAMINE 15 MG/ML VIAL ONE (16:35)
[2021-01-18 17:48] VITALS: BP 131/61; PULSE 61
[2021-01-18] MEDS ORDERED: LIDOCAINE PATCH REMOVAL MC SCH (22:00)
== END 2021-01-18 17:48 | disposition home or self-care (01) ==
LOC: JER 07:31
PROC: 3E0333Z Introduction of Anti-inflammatory into Peripheral Vein, Percutaneous Approach (ICD-10-PCS; principal; 2021-01-18)
DX: M25.552 Pain in left hip (principal); R53.1 Weakness; M54.5 Low back pain
CPT/HCPCS: 36415; 70450-TC; 72148-TC; 73502-TC-RT-FY; 73523-TC-FY; 74177-TC; 80053; 81003; 82550; 83690; 85025; 85651; 86140; 86618; 87086; 99285-25; Q9967